=== PATIENT | male | born 2000 | race Caucasian/White ===

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

== ENCOUNTER 2021-12-02 10:17 | Emergency (ER) | payer MEDICAID, SELFPAY ==
[2018-12-20 13:57] VITALS: O2SAT 100
[2021-12-02 10:21] VITALS: BP 113/97; PULSE 61; RESP 16; TEMP 37; O2SAT 99
[2021-12-02] MEDS: Mylanta Suspension 30 ML CUP PO (10:46)
[2021-12-02] MEDS: Dicyclomine 20 MG TAB PO (10:46)
[2021-12-02] MEDS: Famotidine 20 MG TAB PO (10:46)
[2021-12-02 10:58] LABS: Abs Immature Grans 0.01 10^3/uL (0.0-0.06); Absolute Basophil Count 0.03 10^3/uL (0.0-0.2); Absolute Eosinophil Count 0.05 10^3/uL (0.0-0.7); Absolute Lymphocyte Count 1.08 10^3/uL (1.2-3.4); Absolute Monocyte Count 0.44 10^3/uL (0.1-0.8); Absolute Neutrophil Count 5.96 10^3/uL (1.2-6.7); Basophils % 0.4; Eosinophils % 0.7; HCT 43.4 % (40.0-50.0); HGB 15.2 g/dL (13.5-17.5); Immature Grans % 0.1; Lymphocytes % 14.3; MCH 29.5 pg (27.0-33.0); MCV 84 fL (80-95); MPV 9.8 fL (8.0-11.0); Monocytes % 5.8; Neutrophils % 78.7; Platelet Count 256 10^3/uL (130-400); RBC 5.16 10^6/uL (4.36-5.78); RDW 11.7 % (11.8-14.1); RDW-SD 35.7 fL; WBC 7.57 10^3/uL (4.4-10.8)
[2021-12-02 11:33] LABS: ALT 43 U/L (16-63); AST 28 U/L (15-37); Albumin 4.2 g/dL (3.4-5.0); Alkaline Phosphatase 86 U/L (46-116); Anion Gap 8.1 mmol/L (3-11); BUN 15 mg/dL (7-18); Bilirubin, Total 1.3 mg/dL (0.2-1.0); CO2 28.9 mmol/L (21.0-32.0); Calcium 9.2 mg/dL (8.5-10.1); Chloride 103 mmol/L (98-107); Glucose 94 mg/dL (74-106); Lipase 118 U/L (73-393); Potassium 4.3 mmol/L (3.5-5.1); Sodium 140 mmol/L (136-145); Total Protein 8.1 g/dL (6.4-8.2)
--- NOTE | 2021-12-02 11:45 | DI.RAD_ITS ---
Exam(s) XR ABDOMEN FLAT UPRIGHT EXAM: XR ABDOMEN FLAT UPRIGHT CLINICAL HISTORY: abd pain/vomiting. TECHNIQUE: 2D digital imaging was performed. COMPARISON: No exams were available for comparison FINDINGS: Two views-supine and upright The bowel gas pattern is nonspecific. No bowel obstruction. No free air. No abnormal calcifications seen. Regional bones appear unremarkable IMPRESSION: No bowel obstruction. No free air. DATA REPOSITORY: RADIATION DOSE DELIVERED:
[2021-12-02] MEDS: Ketorolac 15 MG/ML VIAL IVP (12:05)
[2021-12-02] MEDS: Metoclopramide 10 MG/2 ML VIAL IVP (12:05)
[2021-12-02] MEDS: Normal Saline 1,000 ML 1000 ML IV (12:05)
[2021-12-02] MEDS: Normal Saline 50 ML 200 ML (12:06)
--- NOTE | 2021-12-02 13:06 | ED.GENADUL_ITS ---
Discharge Plan Disposition Patient Disposition: HOME Condition: Stable Discharge Details Clinical Impression: Gastritis Primary Care Provider: Ulisses Castro ED Provider: Ratna Willson Home Meds and New Rx's Prescriptions: New sucralfate [Carafate] 100 mg/mL suspension 10 ml PO QID Qty: 414 0RF Rx Instructions: swish in mouth and swallow; use after food/drink metoclopramide HCl [Reglan] 10 mg tablet 10 mg PO Q6H PRNQty: 7 0RF dicyclomine 20 mg tablet 20 mg PO BID Qty: 14 0RF famotidine [Pepcid] 20 mg tablet 20 mg PO DAILY Qty: 14 0RF Continued albuterol sulfate [ProAir HFA] 8.5 GM HFA aerosol inhaler 2 puff Inhalation Q4H PRN Qty: 1 1RF Rx Instructions: take 2 puffs every 4 hours as needed for wheeze/cough/work of breathing Discharge Instructions Instructions: Gastritis (ED) Additional Instructions: Take the Pepcid for the next 5 to 7 days as prescribed Take the Carafate daily as prescribed for the next week Take Reglan as needed for nausea Take the Bentyl as needed for abdominal pain Stay away from meat, chicken, and fish Stay away from tomato, citrus, and spicy. [place] diet, mashed potatoes, rice, chicken noodle soup, low-fat. Rechecked and 24 hours with PCP as needed Return earlier should he have new or worsening complaints Referrals: Ulisses Castor MD [Primary Care Provider] - Discharge Data Discharge Date/Time-TO BE ENTERED AT DEPARTURE: 12/02/21 12:56 Medical Decision Making X-ray abdomen pelvis does not show evidence of acute abnormality Feeling symptomatically improved with stable labs for patient when compared to prior Suspect patient has gastritis, likely from consumption of large hamburger outpatient follow-up and possible endoscopy if persistent symptoms refer back to PCP -Carafate, Pepcid, Maalox for home Return precautions discussed with patient expressed understanding, symptomat ically improved without nausea at time of discharge home Medical Records Medical records reviewed: Yes I reviewed the patient's medical records. Lab Data Lab results reviewed: Yes I reviewed the patient's lab results. HPI General Date/Time Provider Initiated Documentation: 12/02/21 10:18 . HPI Narrative: This 21-year-old male presents with report of abdominal pain since 10:00 last night. He states he ate a double hamburger and the pain started approximately half an hour after that. He vomited once. He has had some nausea. He denies any chest pain or shortness of breath. He denies any dizziness or weakness. He denies any diarrhea associated. He describes the pain as a fire sensation . He is not attempted any [id number] medications. He denies prior history of similar symptoms in the past. Related Data Home Medications Medication Instructions Recorded Confirmed albuterol sulfate 90 mcg/actuation 2 puff INHALATION Q4H PRN #1 08/30/17 12/02/21 aerosol inhaler (ProAir HFA) inhaler dicyclomine 20 mg tablet 20 mg PO BID #14 tab 12/02/21 famotidine 20 mg tablet (Pepcid) 20 mg PO DAILY #14 tab 12/02/21 metoclopramide HCl 10 mg tablet 10 mg PO Q6H PRN #7 tab 12/02/21 (Reglan) sucralfate 100 mg/mL oral 10 ml PO QID #414 ml 12/02/21 suspension (Carafate) Previous Rx's Medication Instructions Recorded albuterol sulfate 90 mcg/actuation 2 puff INHALATION Q4H PRN #1 08/30/17 aerosol inhaler (ProAir HFA) inhaler dicyclomine 20 mg tablet 20 mg PO BID #14 tab 12/02/21 famotidine 20 mg tablet (Pepcid) 20 mg PO DAILY #14 tab 12/02/21 metoclopramide HCl 10 mg tablet 10 mg PO Q6H PRN #7 tab 12/02/21 (Reglan) sucralfate 100 mg/mL oral 10 ml PO QID #414 ml 12/02/21 suspension (Carafate) Allergies Allergy/AdvReac Type Severity Reaction Status Date / Time amoxicillin Allergy Hives Unverified 12/02/21 10:27 General Stated Complaint: Abd Prob CHIRAG: 3 Review of Systems All systems reviewed & are unremarkable except as noted in HPI and below PFSH All Active Problems (Updated 12/02/21 @ 12:48 by DICKSON Mendoza) Gastritis (Acute) Acne vulgaris (Acute 08/22/17) Medical History (Updated 05/06/22 @ 12:48 by DICKSON Mendoza) Wears glasses Family History Mother Lupus Mental disorder depression Father No problems noted. Sister No problems noted. Brother No problems noted. Brother No problems noted. SIBLING Mental disorder ANXIETY GRANDPARENT Substance abuse DRUGS Essential hypertension Heart disease Asthma Social History Smoking/Tobacco Use Status: Never Smoking risk assessment performed?: Yes Drug use: Daily Substance use type: marijuana Exam Const General: cooperative, comfortable and no acute distress Chest Chest: normal inspection of the chest Resp Effort & Inspection: normal respiratory effort Auscultation: clear to auscultation bilaterally Cardio Rate: regular rate Rhythm: regular rhythm GI Inspection: normal to inspection Other: Bowel sounds intact, epigastric tenderness, no rebound or guarding, no CVA tenderness Skin General skin exam: no rashes or lesions noted Neuro General: patient alert and patient oriented x3 Extrem General: normal to inspection Other: Distal pulses intact Psych Appearance: grossly normal Course Vital Signs Vital signs: Vital Signs Temperature 37 C 12/02/21 10:21 Pulse 61 12/02/21 10:21 Respiratory Rate 16 12/02/21 10:21 Blood Pressure 113/97 H 12/02/21 10:21 Pulse Oximetry 99 12/02/21 10:21 Temperature 37 C 12/02/21 10:21 Temperature Source Temporal Artery Scan 12/02/21 10:21 Pulse 61 12/02/21 10:21 Respiratory Rate 16 12/02/21 10:21 Respiratory Effort 12/02/21 10:21 Blood Pressure 113/97 H 12/02/21 10:21 Blood Pressure Position Sitting 12/02/21 10:21 Pulse Oximetry 99 12/02/21 10:21 Oxygen Delivery Method Room Air 12/02/21 10:21 Oxygen Flow Rate 0 12/02/21 10:21 Pain Level 4 12/02/21 12:05 Lab/Test Results Lab/Test Results: Laboratory Tests Range/Units 12/02/21 12/02/21 10:39 10:52 WBC (4.4-10.8) 10^3/uL 7.57 RBC (4.36-5.78) 10^6/uL 5.16 Hgb (13.5-17.5) g/dL 15.2 Hct (40.0-50.0) % 43.4 MCV (80-95) fL 84 MCH (27.0-33.0) pg 29.5 MCHC (32.0-36.0) % 35.0 RDW (11.8-14.1) % 11.7 L Plt Count (130-400) 10^3/uL 256 MPV (8.0-11.0) fL 9.8 Immature Gran % 0.1 Neutrophils % 78.7 Lymphocytes % 14.3 Monocytes % 5.8 Eosinophils % 0.7 Basophils % 0.4 Nucleated RBC % (0.0-0.3) % 0.0 Absolute Neutrophils (1.2-6.7) 10^3/uL 5.96 Absolute Lymphocytes (1.2-3.4) 10^3/uL 1.08 L Absolute Monocytes (0.1-0.8) 10^3/uL 0.44 Absolute Eosinophils (0.0-0.7) 10^3/uL 0.05 Absolute Basophils (0.0-0.2) 10^3/uL 0.03 Sodium (136-145) mmol/L 140 Potassium (3.5-5.1) mmol/L 4.3 Chloride (98-107) mmol/L 103 Carbon Dioxide (21.0-32.0) mmol/L 28.9 Anion Gap (3-11) mmol/L 8.1 BUN (7-18) mg/dL 15 Creatinine (0.70-1.30) mg/dL 1.0 Estimated GFR/1.73 m2 (mL/min/1.73m2) >= 60.00 Glucose (74-106) mg/dL 94 Calcium (8.5-10.1) mg/dL 9.2 Total Bilirubin (0.2-1.0) mg/dL 1.3 H AST (15-37) U/L 28 ALT (16-63) U/L 43 Alkaline Phosphatase (46-116) U/L 86 Total Protein (6.4-8.2) g/dL 8.1 Albumin (3.4-5.0) g/dL 4.2 Lipase (73-393) U/L 118
== END 2021-12-02 12:56 | disposition home or self-care (01) ==
PROVIDERS: Emergency Provider Physician Assistant; PCP Pediatrics
DX: K29.00 Acute gastritis without bleeding (principal); R10.9 Unspecified abdominal pain; R11.10 Vomiting, unspecified
CPT/HCPCS: 80053; 83690; 96361; 96374; 96375; 99284; 74019; 85025; J1885; J2765

== ENCOUNTER 2022-02-11 06:28 | Emergency (ER) | payer MEDICAID, SELFPAY ==
[2018-12-20 13:57] VITALS: O2SAT 100
--- NOTE | 2022-02-11 06:30 | DI.RAD_ITS ---
Exam(s) XR CHEST 2V PA LATERAL EXAM: XR CHEST 2V PA LATERAL CLINICAL HISTORY: cough with speckling of blood, r/o mass/pneumonia. TECHNIQUE: 2D digital imaging was performed. COMPARISON: CR CHEST 2 VIEWS PA,LAT from 09/28/2012 FINDINGS: 2 views: Heart size is normal. The mediastinum is not widened. Lungs are clear. No infiltrates nor pleural effusions. IMPRESSION: No acute pulmonary findings. DATA REPOSITORY: RADIATION DOSE DELIVERED:
[2022-02-11 06:34] VITALS: BP 118/75; PULSE 58; RESP 16; TEMP 37.3; O2SAT 100
--- NOTE | 2022-02-11 06:42 | W.ED.GENAD ---
Discharge Plan Disposition Patient Disposition: HOME Condition: Good Discharge Details Clinical Impression: Bronchitis Primary Care Provider: Ulisses Castro ED Provider: Ulisses Bowden Home Meds and New Rx's Prescriptions: No Action albuterol sulfate [ProAir HFA] 8.5 GM HFA aerosol inhaler 2 puff Inhalation Q4H PRN Qty: 1 1RF Rx Instructions: take 2 puffs every 4 hours as needed for wheeze/cough/work of breathing escitalopram oxalate 5 mg tablet 5 mg PO DAILY Qty: 30 0RF famotidine [Pepcid] 20 mg tablet 20 mg PO DAILY Qty: 14 0RF Discharge Instructions Instructions: Acute Bronchitis (ED) Additional Instructions: As we discussed together the small amount of blood that you felt was likely from irritation in your bronchi from your cough. As we discussed this can be made worse with vaping and smoke exposure to your lungs. Please do your best to cut down on both vaping and smoke exposure to your lungs over the next few weeks. Please take the inhaler as directed, 2 puffs every 12 hours. Please continue to take 10 mg of loratadine/Claritin daily If you notice any worsening of your symptoms, or any new symptoms such as vomiting, diarrhea, fever, chills, shortness of breath, chest pain, numbness, weakness, or fainting , please return immediately to the emergency department for reevaluation. Please follow up with your primary care provider as soon as possible for reassessment and reevaluation. As always, it was a pleasure participating in your medical care today. Referrals: Ulisses Castro MD [Primary Care Provider] - Medical Decision Making This is a pleasant 21-year-old male with a past medical history of asthma as a child, who does smoke 2 packs of marijuana throughout the week, but does also vape regularly, who presents today for cough and hemoptysis. Patient states that for the last week he has had a runny nose, congestion, and an unremitting cough. It is worse in the morning when he gets up. Today when he woke up about 10 minutes prior to arrival he coughed and a nickel sized amount of blood was noted in his sputum. He came into the ER for further assessment. He denies vomiting. He denies fever or chills. He denies a headache. He admits to a congestion feeling in his chest. He denies any tearing or ripping sensation. No recent long flights or trips. No history of blood clots otherwise. No other complaints at this time. Patient states that he has taken Claritin but this has not improved his symptoms. Lung sounds are notably clear. Patient has had his COVID-vaccine. Vital signs notably stable including no signs of hypoxia. Tachycardia. No cough or hemoptysis currently. Suspect that the patient is suffering from bronchitis secondary to postnasal drip with chronically irritated lungs from his vaping and occasional marijuana use. Do feel the patient would benefit from Symbicort with a steroid component to settle down the inflammatory component. We will get chest x-ray to rule out mass or pneumonia. Patient otherwise stable HPI General Date/Time Provider Initiated Documentation: 02/11/22 06:31. HPI Narrative: This is a pleasant 21-year-old male with a past medical history of asthma as a child, who does smoke 2 packs of marijuana throughout the week, but does also vape regularly, who presents today for cough and hemoptysis. Patient states that for the last week he has had a runny nose, congestion, and an unremitting cough. It is worse in the morning when he gets up. Today when he woke up about 10 minutes prior to arrival he coughed and a nickel sized amount of blood was noted in his sputum. He came into the ER for further assessment. He denies vomiting. He denies fever or chills. He denies a headache. He admits to a congestion feeling in his chest. He denies any tearing or ripping sensation. No recent long flights or trips. No history of blood clots otherwise. No other complaints at this time. Patient states that he has taken Claritin but this has not improved his symptoms. Related Data Home Medications Medication Instructions Recorded Confirmed albuterol sulfate 90 mcg/actuation 2 puff inhalation Q4H PRN ##1 08/30/17 01/12/22 aerosol inhaler (ProAir HFA) famotidine 20 mg tablet (Pepcid) 20 mg PO DAILY #14 tabs 12/02/21 01/12/22 escitalopram oxalate 5 mg tablet 5 mg PO DAILY #30 tabs 01/27/22 Previous Rx's Medication Instructions Recorded albuterol sulfate 90 mcg/actuation 2 puff inhalation Q4H PRN ##1 08/30/17 aerosol inhaler (ProAir HFA) famotidine 20 mg tablet (Pepcid) 20 mg PO DAILY #14 tabs 12/02/21 escitalopram oxalate 5 mg tablet 5 mg PO DAILY #30 tabs 01/27/22 Allergies Allergy/AdvReac Type Severity Reaction Status Date / Time amoxicillin Allergy Hives Unverified 12/02/21 10:27 General Stated Complaint: RespSymp CHIRAG: 3 Review of Systems All systems reviewed & are unremarkable except as noted in HPI and below PFSH All Active Problems (Updated 02/11/22 @ 07:27 by Ulisses Bowden DO) Bronchitis (Acute) Marijuana use (Acute) Acne vulgaris (Acute 08/22/17) Medical History Wears glasses Family History Mother Lupus Mental disorder depression Father No problems noted. Sister No problems noted. Brother No problems noted. Brother No problems noted. [place] Mental disorder ANXIETY GRANDPARENT Substance abuse DRUGS Essential hypertension Heart disease Asthma Social History Smoking/Tobacco Use Status: Current every day Tobacco Type: e-cigarettes Smoking risk assessment performed?: Yes Drug use: Occasionally Substance use type: marijuana Details: Marijuana use a few times a week. Do you feel safe at home: Yes Do you feel safe in your relationship?: Yes Exam Narrative Exam Narrative: 1.Const: Well-nourished, Well-developed, appearing stated age 2.Eyes: PERRL, no conjunctival injection, and symmetrical lids. 3.ENT: Atraumatic external nose and ears. Moist MM. Neck: Symmetric, trachea midline, No thyromegaly. 4.CVS: +S1/S2, No murmurs or gallops. Peripheral pulses 2+ and equal in all extremities. Brisk capillary refill in all extremities. 5.RESP: Unlabored respiratory effort. Clear to auscultation bilaterally. No wheezes rales or rhonchi 6.GI: Soft, Nontender/Nondistended, No hepatosplenomegaly. No guarding or rebound. 7.MSK: Normocephalic/Atraumatic, Extremities w/o deformity or ttp No cyanosis or clubbing, Normal movement of all extremities 8.Skin: Warm, Dry. No rashes or lesions. 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 Sensation grossly intact, no focal neurologic deficits. 10.Psych: (AAO) x3. Appropriate mood and affect Course Vital Signs Vital signs: Vital Signs Temperature 37.3 C 02/11/22 06:34 Pulse 58 L 02/11/22 06:34 Respiratory Rate 16 02/11/22 06:34 Blood Pressure 118/75 02/11/22 06:34 Pulse Oximetry 100 02/11/22 06:34 Temperature 37.3 C 02/11/22 06:34 Temperature Source Skin 02/11/22 06:34 Pulse 58 L 02/11/22 06:34 Respiratory Rate 16 02/11/22 06:34 Blood Pressure 118/75 02/11/22 06:34 Blood Pressure Position Sitting 02/11/22 06:34 Pulse Oximetry 100 02/11/22 06:34 Oxygen Delivery Method Room Air 02/11/22 06:34 Oxygen Flow Rate 0 02/11/22 06:34
[2022-02-11 07:06] LABS: Source Nasal/Nares
[2022-02-11] MEDS: Budesonide/Formoterol 160/4.5 6 GM 60 PUFF INH IH (07:49)
[2022-02-11] MEDS: Inhaler, Assist Device 1 EACH MC (07:49)
[2022-02-11 08:05] LABS: COVID-19 PCR Negative (Negative)
--- NOTE | 2022-02-11 08:59 | DI.VRAD_ITS ---
PROCEDURE INFORMATION: Exam: XR Chest Exam date and time: 02/11/2022 7:15 AM Age: 21 years old Clinical indication: Cough with hemorrhage; Patient HX: Cough w/ speckling of blood. R/O mass/pneumonia TECHNIQUE: Imaging protocol: Radiologic exam of the chest. Views: 2 views. COMPARISON: CR XR ABDOMEN FLAT UPRIGHT 12/02/2021 12:18 PM FINDINGS: Lungs: Unremarkable. No consolidation. Pleural spaces: Unremarkable. No pleural effusion. No pneumothorax. Heart/Mediastinum: Unremarkable. No cardiomegaly. Bones/joints: Unremarkable. IMPRESSION: No acute findings. Dictated and Authenticated by: Lalo Iglesias MD. Ordering:TIN Gtz MD
--- NOTE | 2022-02-11 09:02 | W.EDPROG ---
Date of service: 02/11/22 Time of Service: 08:00 Medical Decision Making Pt not seen or examined by me. Sign Out Sign Out Data: Sign Out Comment: Pending chest x-ray results with expectant discharge Last updated by Ulisses Bowden DO at 02/11/22 07:58 Discharge Plan Disposition Patient Disposition: HOME Condition: Good Discharge Details Clinical Impression: Bronchitis Primary Care Provider: Ulisses Castro ED Provider: Edilma Boone Home Meds and New Rx's Prescriptions: No Action albuterol sulfate [ProAir HFA] 8.5 GM HFA aerosol inhaler 2 puff Inhalation Q4H PRN Qty: 1 1RF Rx Instructions: take 2 puffs every 4 hours as needed for wheeze/cough/work of breathing escitalopram oxalate 5 mg tablet 5 mg PO DAILY Qty: 30 0RF famotidine [Pepcid] 20 mg tablet 20 mg PO DAILY Qty: 14 0RF Discharge Instructions Instructions: Acute Bronchitis (ED) Additional Instructions: As we discussed together the small amount of blood that you felt was likely from irritation in your bronchi from your cough. As we discussed this can be made worse with vaping and smoke exposure to your lungs. Please do your best to cut down on both vaping and smoke exposure to your lungs over the next few weeks. Please take the inhaler as directed, 2 puffs every 12 hours. Please continue to take 10 mg of loratadine/Claritin daily If you notice any worsening of your symptoms, or any new symptoms such as vomiting, diarrhea, fever, chills, shortness of breath, chest pain, numbness, weakness, or fainting , please return immediately to the emergency department for reevaluation. Please follow up with your primary care provider as soon as possible for reassessment and reevaluation. As always, it was a pleasure participating in your medical care today. Referrals: Ulisses Castro MD [Primary Care Provider] - Discharge Data Discharge Physician: Edilma Boone
== END 2022-02-11 09:11 | disposition home or self-care (01) ==
PROVIDERS: Student in an Organized Health Care Education/Training Program; Emergency Provider Physician Assistant; PCP Pediatrics
DX: J20.9 Acute bronchitis, unspecified (principal)
CPT/HCPCS: 87635; 99283; 71046

== ENCOUNTER 2022-04-06 20:32 | Outpatient (REF) | payer MEDICAID, SELFPAY ==
[2018-12-20 13:57] VITALS: O2SAT 100
[2022-04-09 15:02] LABS: Chlamydia Result Negative (Negative); GC Result Negative (Negative)
== END 2022-04-06 20:33 | disposition home or self-care (01) ==
LOC: LBN 20:32
PROVIDERS: PCP Pediatrics; Visit Provider Pediatrics
DX: R30.0 Dysuria (principal)
CPT/HCPCS: 87491; 87591

== ENCOUNTER 2023-06-24 12:01 | Emergency (ER) | payer SELFPAY ==
[2018-12-20 13:57] VITALS: O2SAT 100
--- NOTE | 2023-06-24 12:00 | DI.US_ITS ---
Exam(s) US SCROTUM EXAM: US SCROTUM CLINICAL HISTORY: Testicular pain. TECHNIQUE: Scrotal ultrasound performed using grayscale, color-flow and spectral Doppler analysis. COMPARISON: No exams were available for comparison FINDINGS: Right testicle: 4.5 x 1.6 x 3.4 cm Echogenicity: Normal. Contour: Smooth. Mass: None seen. Microlithiasis: None. Hydrocele: There is a small right hydrocele. Variocele: None. Hernia: No peristalsing bowel loop identified. Epididymis: There is normal echogenicity of the epididymis. No increased blood flow. Left testicle: 3.4 x 2.0 x 2.6 cm Echogenicity: Normal. Contour: Smooth. Mass: None seen. Microlithiasis: None. Hydrocele: There is a small left hydrocele. Variocele: None. Hernia: No peristalsing bowel loop identified. Epididymis: There is normal echogenicity of the epididymis. There is normal blood flow. DOPPLER: Color: Symmetric and uniform, no hyperemia. IMPRESSION: 1. Normal appearing bilateral testicles. There is no evidence of torsion. 2. There is normal echogenicity of the epididymides. No abnormal blood flow is seen. No definite so nographic evidence to suggest epididymitis at this time. Follow-up as clinically appropriate. DATA REPOSITORY:
[2023-06-24 12:08] VITALS: BP 152/91; PULSE 82; RESP 20; TEMP 36.4; O2SAT 98
--- NOTE | 2023-06-24 12:10 | W.ED.GENAD ---
Discharge Plan Disposition Patient Disposition: Home Discharge Details Clinical Impression: Acute epididymitis Primary Care Provider: Ulisses Castro ED Provider: Ross Marcelo Home Meds and New Rx's Prescriptions: New sulfamethoxazole-trimethoprim [Bactrim DS] 800-160 mg tablet 1 tab PO BID 10 Days Qty: 20 0RF No Action No Known Home Meds Discharge Instructions Instructions: Epididymitis (ED) Additional Instructions: You are seen in the emergency department for your testicular pain. Your ultrasound showed no sign of testicular torsion but did show signs of swelling in your epididymis on both sides. This could be the result of a urinary tract infection so you are receiving antibiotics. The urology team will call you for follow-up. Please also call them at the number below to arrange for follow-up. As we discussed, please wear supportive underwear and emergency department if your pain suddenly worsens if you develop nausea or vomiting that does not stop or if you notice any skin changes overlying your testicles. For your pain please take medications as follows: 1. Take acetaminophen (Tylenol), 1,000 mg (two 500 mg tabs) every 6 hours 2. Take ibuprofen (Advil), 400 mg every 6 hours. Referrals: Kaden Sandoval MD [ [facility] STAFF PHYSICIAN] - Discharge Data Discharge Date/Time-TO BE ENTERED AT DEPARTURE: 06/24/23 13:53 HPI General Date/Time Provider Initiated Documentation: 06/24/23 12:09. HPI Narrative: MDM This is an overall very well-appearing mildly hypertensive but afebrile and not tachycardic 22-year-old male with testicular pain intermittently concerning for the possibility of torsion. No obvious discoloration or swelling so will defer attempt at detorsion in the emergency department. Patient denies dysuria however does report prior history of urinary tract infection so we will order urinalysis. Not sexually active and abnormal urethral discharge so my suspicion is exceedingly low for UTI. No pain out of proportion to suggest necrotizing soft tissue infection. No signs of candidiasis. Not immunocompromise to suggest opportunistic infection. Received childhood immunizations. Will defer analgesia at this point time given patient took ibuprofen prior to arrival. 12:10 PM When patient arrived I asked health medical unit secretary Lorraine to have ultrasound paged given question of torsion. I also ordered the ultrasound. 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 1:30 PM I received a call from the body technician/painter who reported that the patient had no signs of torsion. He did have a mild right-sided hydrocele. I have asked health coordinator Lorraine to have him seen next week by urology. His urinalysis has just been sent. 1:37 PM Urinalysis nitrite negative no hematuria. Leukoesterase negative. Mild proteinuria. Proteinuria new compared to prior. Virtual radiology report from ultrasound showing no evidence of torsion. Ultrasound showing the epididymis enlarged bilaterally. Concerning for the possibility of epididymitis bilaterally. Based on the patient's age and lack of risk factors for UTI will send a urine culture. We will also treat with trimethoprim/sulfamethoxazole given hives from amoxicillin. Will give strict return indications with any worsening pain any nausea or vomiting that does not stop or any skin changes. Chronic conditions affecting the care of the patient: N/A History obtained from an outside historian: N/A External record review: No [facility] [place] Medications: N/A Social determinants of health affecting disposition: N/A Management discussed with: N/A Treatment/interventions considered: N/A Response to therapies provided: N/A HPI This is a previously healthy 22-year-old male up-to-date on immunizations not on any home medications arriving to the emergency department in the setting of intermittent transient pain in his bilateral testicles. Patient reports that his pain started this morning at 1 to 2 AM. It radiates up into his stomach. He is not having any pain in his stomach. He has been nauseous and vomiting but denies diarrhea. No past abdominal surgical history. He vapes tobacco and smokes marijuana. Denies routine ethanol. He denies history of sexually transmitted infections. He is not sexually active. He denies dysuria and frequency. He does note remote prior urinary tract infection for which she received treatment at [facility] pediatrics. Patient reports that he was treated with primary disease. Chart review does not reveal encounter for urinary tract infection in the last year. He describes his pain as an ache. He has not noticed any skin changes. No rash that he has noticed to his scrotum. Exam General: Well-appearing in no acute distress speaking in complete sentences. Head: Normocephalic, atraumatic. Eye: Extraocular eye movements intact. No conjunctival injection. No scleral icterus. Ear, nose, mouth, throat: Grossly normal inspection. Normal voice, handling secretions normally. Neck: Trachea midline. Cardiovascular: Well-perfused distal extremities. Respiratory: Nonlabored respiration. Gastrointestinal: Nondistended abdomen. Soft nontender. No rebound. No guarding. : Circumcised penis. No significant testicular tenderness nor swelling. No rash. Musculoskeletal: No edema. Moving all 4 extremities spontaneously. Skin: Normal for age and race, grossly normal temperature and turgor. No acute rash. Neurologic: Alert and appropriate, no apparent acute deficits. Psychiatric: Mood and manner are appropriate. Grooming and personal hygiene are appropriate. Related Data Home Medications Medication Instructions Recorded Confirmed Unknown [No Known Home Meds] 06/24/23 06/24/23 sulfamethoxazole 800 1 tab PO BID 10 days #20 tabs 06/24/23 mg-trimethoprim 160 mg tablet (Bactrim DS) Previous Rx's Medication Instructions Recorded sulfamethoxazole 800 1 tab PO BID 10 days #20 tabs 06/24/23 mg-trimethoprim 160 mg tablet (Bactrim DS) Allergies Allergy/AdvReac Type Severity Reaction Status Date / Time amoxicillin Allergy Hives Unverified 06/24/23 12:13 General CHIRAG: 3 PFSH All Active Problems (Updated 06/24/23 @ 13:41 by Ross Marcelo MD) Acute epididymitis (Acute) Marijuana use (Acute) Acne vulgaris (Acute 08/22/17) Medical History Wears glasses Family History Mother Lupus Mental disorder depression Father No problems noted. Sister No problems noted. Brother No problems noted. Brother No problems noted. [place] Mental disorder ANXIETY GRANDPARENT Substance abuse DRUGS Essential hypertension Heart disease Asthma Social History Smoking/Tobacco Use Status: Current every day Tobacco Type: e-cigarettes Smoking risk assessment performed?: Yes Drug use: Occasionally Substance use type: marijuana Details: Marijuana use a few times a week. Do you feel safe at home: Yes Do you feel safe in your relationship?: Yes
--- NOTE | 2023-06-24 13:34 | DI.VRAD_ITS ---
PROCEDURE INFORMATION: Exam: US Scrotum and Artery or Vein of the Abdominal and/or Reproductive Organs, Limited Scrotum Exam date and time: 06/24/2023 12:58 PM Age: 22 years old Clinical indication: Scrotum pain TECHNIQUE: Imaging protocol: Real-time ultrasound of the scrotum. Real-time duplex ultrasound scan of the arterial or venous flow with lacy scale, color Doppler flow and spectral waveform analysis with image documentation. Limited Duplex exam focused of the scrotum. Duplex exam was performed to evaluate for torsion and other vascular conditions. COMPARISON: No relevant prior studies available. FINDINGS: Right testicle: Peak systolic velocity of the right testis 10 cm/s. Right testis 4.5 x 1.6 x 3.4 cm total volume 12.8 cc Left testicle: Peak systolic velocity left testis 5 cm/s. Left testis 3.4 x 2 x 2.6 cm total volume 9.3 cc Epididymides: The epididymis is enlarged 2.2x 0.61x 1.25 cm. Left epididymis 1.04 x 0.89 x 2.8 cm Scrotum: Bilateral hydroceles IMPRESSION: No evidence of torsion. The epididymis is enlarged bilaterally. This could represent epididymitis bilaterally. Dictated and Authenticated by: Teresa Strickland MD. Ordering:MEGA Hawkins MD
[2023-06-24 13:35] LABS: Bilirubin Negative (Negative); Blood Negative (Negative); Clarity Clear (Clear); Glucose Negative (Negative); Ketones 80 mg/dL (Negative); Leukocyte Esterase Negative (Negative); Nitrite Negative (Negative); pH 7.5 (5-8)
[2023-06-24 13:46] LABS: Bacteria Rare HPF (Negative); C & S Indicated? No; Casts Negative LPF (Negative); Crystals Negative HPF (Negative); Epithelial Cells Rare HPF (Negative); Mucus Heavy (Negative); RBC 0-2 HPF (0-2); WBC 0-2 HPF (0-5)
[2023-06-24] MEDS: Sulfameth/Trimeth DS TAB 1 TAB PO (13:47)
--- NOTE | 2023-06-24 15:53 | NUR.NOTE ---
Referral faxed to [facility] Urology for hydrocele right testicle; for this week. Nursing Note:
== END 2023-06-24 13:53 | disposition home or self-care (01) ==
PROVIDERS: Emergency Provider Emergency Medicine; PCP Pediatrics
DX: N45.1 Epididymitis (principal); Z87.440 Personal history of urinary (tract) infections
CPT/HCPCS: 99284; 76870; 81003; 81015; 87086; 99283

== ENCOUNTER 2025-06-28 14:29 | Emergency (ER) | payer SELFPAY ==
[2018-12-20 13:57] VITALS: O2SAT 100
[2025-06-28 14:35] VITALS: BP 126/75; PULSE 86; RESP 16; TEMP 36.8; O2SAT 98
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
== END 2025-06-28 16:10 | disposition home or self-care (01) ==
PROVIDERS: Emergency Provider Emergency Medicine
DX: S61.211A Laceration without foreign body of left index finger without damage to nail, initial encounter (principal); X58.XXXA Exposure to other specified factors, initial encounter
CPT/HCPCS: 99283; 73140